=== PATIENT | female | born 1965 | race Caucasian/White ===

== ENCOUNTER 2019-02-23 19:24 | Emergency (ER) | payer MEDICAID ==
[~2019-02-23] VITALS: Ht 160 cm; Wt 82.0 kg
[2019-02-23] MEDS ORDERED: LORAZEPAM 1MG TABLET PO ONE (21:45)
[2019-02-23 21:59] LABS: CLARITY URINE CLEAR (CLEAR); COLOR URINE YELLOW (YELLOW); KETONES URINE TRACE (NEGATIVE); LEUKOCYTE ESTERASE URINE 2+ (NEGATIVE); NITRITE URINE NEGATIVE (NEGATIVE); OCCULT BLOOD URINE NEGATIVE (NEGATIVE); PH URINE 5.5 (4.5-8.0); PROTEIN URINE NEGATIVE (NEGATIVE); UROBILINOGEN URINE 0.2 E.U./dL (0.2-1.0)
[2019-02-23 22:19] LABS: *AMPHETAMINES SCREEN URINE NEGATIVE (NEGATIVE); *BARBITURATES SCREEN URINE NEGATIVE (NEGATIVE)
[2019-02-23 22:20] LABS: *BENZODIAZEPINES SCREEN URINE NEGATIVE (NEGATIVE); *COCAINE SCREEN URINE NEGATIVE (NEGATIVE); CANNABINOID URINE SCREEN NEGATIVE (NEGATIVE); METHADONE URINE SCREEN NEGATIVE (NEGATIVE); OPIATES URINE SCREEN NEGATIVE (NEGATIVE); PHENCYCLIDINE URINE SCREEN NEGATIVE (NEGATIVE)
[2019-02-23 23:03] LABS: CHLORIDE 106 mEq/L (98-107)
[2019-02-23 23:04] LABS: BASOPHILS % 1.1 % (0.0-2.0); EOSINOPHILS % 3.3 % (0.0-5.0); HEMATOCRIT. 32.1 % (36.0-48.0); HEMOGLOBIN. 10.5 g/dL (12.0-16.0); LYMPHOCYTES % 28.7 % (20.0-50.0); MEAN CORPUSCULAR HEMOGLOBIN 26.1 pg (28.0-32.0); MEAN CORPUSCULAR VOLUME 79.9 fL (81.0-99.0); MEAN PLATELET VOLUME 8.8 fl (7.4-10.4); MONOCYTES % 8.7 % (2.0-8.0); NEUTROPHILS % 58.2 % (40.0-76.0); PLATELET 227 x1000/uL (130-400); RED BLOOD CELL COUNT 4.01 mill/uL (4.2-5.4); RED CELL DISTRIBUTION WIDTH 13.9 % (11.6-14.6)
[2019-02-23 23:06] LABS: ETHANOL BLOOD < 10 mg/dL
[2019-02-23 23:12] LABS: HCG SCREEN NEGATIVE
[2019-02-24] MEDS: NITROFURANTOIN 100MG M/M CAPSULE PO SCH ×2 (00:18→08:58)
[2019-02-24] MEDS ORDERED: BUSPIRONE HCL 10MG TABLET PO ONE (08:30)
[2019-02-24 12:45] VITALS: BP 120/68
== END 2019-02-24 13:07 | disposition home or self-care (01) ==
LOC: ER 19:24
DX: R53.1 Weakness (principal); N39.0 Urinary tract infection, site not specified; G47.00 Insomnia, unspecified; R45.851 Suicidal ideations; F32.9 Major depressive disorder, single episode, unspecified; M19.90 Unspecified osteoarthritis, unspecified site; Z88.6 Allergy status to analgesic agent; Z88.8 Allergy status to other drugs, medicaments and biological substances; Z91.14 Patient's other noncompliance with medication regimen
CPT/HCPCS: 36415; 80305; 80307; 80320; 80329; 81003; 81025; 84443; 84703; 93005; 99284; G0480